=== PATIENT | female | born 1990 | race Caucasian/White ===

== ENCOUNTER 2023-04-11 15:26 | Outpatient (OUT) | payer OTHER, SELFPAY | END 2023-04-11 15:27 | disposition home or self-care (01) | LOC: LAB 15:31 | PROVIDERS: PCP Family Medicine; Visit Provider Internal Medicine | DX: B19.20 Unspecified viral hepatitis C without hepatic coma (principal) | CPT/HCPCS: 36415; 87522 ==

== ENCOUNTER 2024-12-30 15:31 | Outpatient (OUT) | payer BC, SELFPAY ==
--- NOTE | 2024-12-30 15:42 | MR_ITS ---
The [address] [address] Patient Name: CAL FRIEDMAN MRN: [id number] date: 1990 Sex: F Assigned Patient Location: MRI Current Patient Location: Accession/Order Number: [id number] Exam Date: 12/31/2024 22:36 Report Date: 12/31/2024 22:47 At the request of: NON-STAFF PHYSICIAN Procedure: MR brach plex LT w/o con MR brach plex LT w/o con 12/30/2024 4:57 PM SIGNS AND SYMPTOMS: ^Brachial Plexopathy Traumatic, Left Shoulder Pain COMPARISON: None. FINDINGS: The left brachial plexus appears unremarkable without abnormal signal along its course.. No mass effect or focal abnormality identified along the adjacent soft tissues. Visualized cervical cord is normal in signal morphology. There are degenerative changes of the cervical spine partially evaluated with left-sided foraminal narrowing C5-6 and C6-C7. No left lung apex mass identified. MR/MR brach plex LT w/o con IMPRESSION: Unremarkable appearance of the left brachial plexus. Degenerative changes of the cervical spine notably in the left-sided C5-C7. Impression dictated by: Ronni Joseph M.D.12/31/2024 10:47 PM Dictation Location: [place] [address] Electronically authenticated by: [id number] Y Date: 12/31/2024 22:47
== END 2024-12-30 15:32 | disposition home or self-care (01) ==
PROVIDERS: PCP Family Medicine
DX: M25.512 Pain in left shoulder (principal); M79.2 Neuralgia and neuritis, unspecified; R29.898 Other symptoms and signs involving the musculoskeletal system; S43.005S Unspecified dislocation of left shoulder joint, sequela
CPT/HCPCS: 73218